=== PATIENT | male | born 1965 | race Caucasian/White ===

== ENCOUNTER 2017-03-26 13:33 | Emergency (ER) | payer MEDICAID ==
[~2017-03-26] VITALS: Ht 170.2 cm; Wt 88.0 kg
[~2017-03-26 13:33] MED LIST: Z.0.NO CURRENT MEDS
[2017-03-26 13:45] VITALS: BP 125/74; PULSE 106; RESP 19; TEMP 98.2; O2SAT 99
[2017-03-26] MEDS ORDERED: RESP: ALBUTEROL 2.5 MG/IPRATROPIUM 0.5 MG NEB (SCH) NEB ONE (14:00)
[2017-03-26] MEDS ORDERED: LORazepam 2 MG/ML VIAL IV PUSH ONE (14:00)
[2017-03-26] MEDS ORDERED: SYMB160A INH (14:18)
[2017-03-26] MEDS ORDERED: AZIT250T3 PO (14:18)
[2017-03-26] MEDS ORDERED: PRED50 PO (14:18)
[2017-03-26] MEDS ORDERED: ALBUAER3 INH (14:18)
[2017-03-26] MEDS ORDERED: HYDR50TA94 PO (14:18)
[2017-03-26 14:19] LABS: AUTOMATED NEUTROPHIL # 12.9 TH/MM3 (1.8-7.7); BASOPHIL # 0.1 TH/MM3 (0-0.2); BASOPHIL % 0.6 % (0.0-2.0); HEMATOCRIT 42.5 % (39.0-51.0); HEMO FLAGS DIFF FINAL; LYMPH % 15.2 % (9.0-44.0); LYMPHOCYTE # 2.6 TH/MM3 (1.0-4.8); MEAN CELL VOLUME 93.3 FL (80.0-100.0); MEAN CORPUSCULAR HEMOGLOBIN 31.4 PG (27.0-34.0); MEAN CORPUSCULAR HGB CONC 33.6 % (32.0-36.0); NEUT % 76.2 % (16.0-70.0); PLATELET COUNT 369 TH/MM3 (150-450); RED BLOOD COUNT 4.55 MIL/MM3 (4.50-5.90); RED CELL DISTRIBUTION WIDTH 14.1 % (11.6-17.2); WHITE BLOOD COUNT 16.9 TH/MM3 (4.0-11.0)
[2017-03-26 14:25] LABS: CHLORIDE 106 MEQ/L (98-107); POTASSIUM 3.6 MEQ/L (3.5-5.1); SODIUM (NA) 138 MEQ/L (136-145)
[2017-03-26 14:29] LABS: ANION GAP 16 MEQ/L (5-15); BICARBONATE 16.5 MEQ/L (21.0-32.0); BLOOD UREA NITROGEN 16 MG/DL (7-18)
[2017-03-26 14:32] LABS: ALT (GPT) 23 U/L (12-78); AST (GOT) 19 U/L (15-37); GLOMERULAR FILTRATION RATE 70 ML/MIN (>89)
--- NOTE | 2017-03-26 14:32 | PD ---
HPI Chief Complaint: Respiratory Symptoms Time Seen by Provider: 13:58 Travel History International Travel<30 days: No Contact w/Intl Traveler<30days: No Traveled to known affect area: No History of Present Illness HPI This is a 51 year old male who has a history of COPD and multiple allergies who presents to the emergency department with shortness of breath has been going on for several hours. The patient reports that overnight he was short of [facility] he waited in the waiting room and ultimately left without being seen. He then called an ambulance and was brought back and was given breathing treatments and some Ativan and he says he was asleep by the time he was discharged. He says that his shortness of breath feels like he can' t catch a deep breath and he feels like something is in his chest and he can't tell if it's phlegm or an allergic reaction. He denies any rash or itching. He says he feels very dry. He's been taking hydroxyzine for anxiety. He admits that he does have a history of anxiety. He denies any chest pain. PFSH Past Medical History Asthma: Yes High Cholesterol: Yes Cirrhosis: Yes COPD: Yes Diminished Hearing: No Respiratory: Yes Past Surgical History Body Medical Devices: LIVER PROBLEMS Social History Alcohol Use: No (QUIT 11 YEARS AGO) Tobacco Use: No (2 PPD X 31 YEARS, QUIT 5 YEARS AGAIN) Substance Use: Yes Allergies-Medications (Allergen,Severity, Reaction): Coded Allergies: No Known Allergies (Verified , 03/27/06) Reported Meds & Prescriptions Reported Meds & Active Scripts Active Reported Hydroxyzine HCl 50 Mg Tab 50 Mg PO QID PRN Prednisone 50 Mg Tab 50 Mg PO DAILY Azithromycin 250 Mg Tab 250 Mg PO DIRECTED Take 2 tabs (500 mg) on day 1 then 1 tab daily x 4 days. Proair Hfa 8.5 GM Inh (Albuterol Sulfate) 90 Mcg/Act Aer 2 Puff INH Q4-6H PRN 108 mcg/actuation Symbicort Inh (Budesonide/Formoterol Fumarate) 160-4.5 Mcg/Act Aero 2 Puff INH Q12HR Review of Systems Except as stated in HPI: all other systems reviewed are Neg Physical Exam Narrative GENERAL:Well appearing, no acute distress SKIN: Focused skin assessment warm and dry. HEAD: Atraumatic. Normocephalic. EYES: Pupils equal and round. No injection or drainage. ENT: Moist mucous membranes NECK: Trachea midline. CARDIOVASCULAR: Regular rate and rhythm. No murmur appreciated. RESPIRATORY: Mild expiratory wheezing, good air movement, speaking full sentences GASTROINTESTINAL: Abdomen soft, non-tender, nondistended. MUSCULOSKELETAL: No obvious deformities. NEUROLOGICAL: Awake and alert. No obvious cranial nerve deficits. Moving all extremities. PSYCHIATRIC: Pressured speech, anxious, somewhat tangential Data Data Last Documented VS Vital Signs Date Time Temp Pulse Resp B/P (MAP) Pulse Ox O2 Delivery O2 Flow Rate FiO2 03/26/17 14:05 99 Room Air 03/26/17 13:45 98.2 106 19 125/74 (91) Orders Orders Complete Blood Count With Diff (03/26/17 13:58) Comprehensive Metabolic Panel (03/26/17 13:58) D-Dimer (03/26/17 13:58) Chest, Single Ap (03/26/17 ) Albuterol-Ipratropium Neb (Duoneb Neb) (03/26/17 14:00) Lorazepam Inj (Ativan Inj) (03/26/17 14:00) Electrocardiogram (03/26/17 ) Ct Pulmonary Angiogram (03/26/17 ) Iohexol 350 Inj (Omnipaque 350 Inj) (03/26/17 15:30) Labs Laboratory Tests Test 03/26/17 14:11 White Blood Count 16.9 TH/MM3 Red Blood Count 4.55 MIL/MM3 Hemoglobin 14.3 GM/DL Hematocrit 42.5 % Mean Corpuscular Volume 93.3 FL Mean Corpuscular Hemoglobin 31.4 PG Mean Corpuscular Hemoglobin Concent 33.6 % Red Cell Distribution Width 14.1 % Platelet Count 369 TH/MM3 Mean Platelet Volume 7.6 FL Neutrophils (%) (Auto) 76.2 % Lymphocytes (%) (Auto) 15.2 % Monocytes (%) (Auto) 8.0 % Eosinophils (%) (Auto) 0.0 % Basophils (%) (Auto) 0.6 % Neutrophils # (Auto) 12.9 TH/MM3 Lymphocytes # (Auto) 2.6 TH/MM3 Monocytes # (Auto) 1.3 TH/MM3 Eosinophils # (Auto) 0.0 TH/MM3 Basophils # (Auto) 0.1 TH/MM3 CBC Comment DIFF FINAL Differential Comment D-Dimer Quantitative (PE/DVT) 0.52 MG/L FEU Blood Urea Nitrogen 16 MG/DL Creatinine 1.10 MG/DL Random Glucose 119 MG/DL Total Protein 8.3 GM/DL Albumin 3.9 GM/DL Calcium Level 9.7 MG/DL Alkaline Phosphatase 69 U/L Aspartate Amino Transf (AST/SGOT) 19 U/L Alanine Aminotransferase (ALT/SGPT) 23 U/L Total Bilirubin 0.9 MG/DL Sodium Level 138 MEQ/L Potassium Level 3.6 MEQ/L Chloride Level 106 MEQ/L Carbon Dioxide Level 16.5 MEQ/L Anion Gap 16 MEQ/L Estimat Glomerular Filtration Rate 70 ML/MIN MDM Medical Decision Making Medical Screen Exam Complete: Yes Emergency Medical Condition: Yes Interpretation(s) Afebrile, tachycardic, no hypoxia Leukocytosis of 16.9 76% neutrophils Bicarbonate is 16 D-dimer is 0.52 Chest x-ray: No acute process EKG: Normal sinus rhythm with no ST changes Differential Diagnosis COPD exacerbation, panic attack, anxiety, bipolar disorder, pulmonary embolism Narrative Course This is a 45-year-old male who presents to the emergency department short of breath. This is his third presentation to an emergency department in 24 hours for this. He does have a history of COPD. On arrival he was placed on a monitor and an IV was established. He was hyperventilating on arrival with a normal oxygen saturation, speaking full sentences. I treated him with a dose of steroids and bronchodilators as well as IV Ativan. My suspicion is that he is having a panic attack in his symptoms are mostly related to anxiety. I had along conversation with the patient regarding this. He feels much better after the Ativan. He says he has a family history of bipolar disorder and he struggled with anxiety in the past. He doesn't have a primary care physician currently because he's been having insurance trouble. I gave him information regarding his failure health and advised him to follow with Sourav Melton regarding possible outpatient treatment options. I will provide him a short course of Xanax which I told him only to use if he develops a panic attack. Labs demonstrate an elevated white blood cell count which I suspect is related to the patient's current steroid use. I'm not certain of the etiology of his low bicarbonate however he looks very well upon reassessment so I think he's safe for discharge. CT pulmonary angiogram is negative Diagnosis Primary Impression: Panic attack Patient Instructions: General Instructions Additional Instructions: If you develop severe chest pain, shortness of breath, sweating, lightheadedness , dizziness or difficulty breathing return to the emergency department immediately. Followup with your primary care physician in 2-3 days if your symptoms are not resolved. Follow up with Walter Melton in regards to psychiatric or substance related issues at: [address] [place], [place] [id number] Med/Other Pt SpecificInfo: Prescription(s) given Scripts Alprazolam (Xanax) 0.5 Mg Tab 0.5 MG PO Q6H Y for ANXIETY, #20 TAB 0 Refills Prov: Aliyah Martinez MD 03/26/17 Disposition: 01 DISCHARGE HOME Condition: Stable Aliyah Martinez MD Mar 26, 2017 14:32
[2017-03-26 14:34] LABS: TOTAL BILIRUBIN ADULT 0.9 MG/DL (0.2-1.0)
[2017-03-26 14:35] LABS: ALKALINE PHOSPHATASE 69 U/L (45-117)
--- NOTE | 2017-03-26 14:45 | RADRPT ---
EXAM DATE/TIME: 03/26/2017 14:33 [facility] COMPARISON: No previous studies available for comparison. INDICATIONS : Short of breath MEDICAL HISTORY : Hypercholesterolemia. Chronic obstructive pulmonary disease. Cirrhosis. Asthma, smoker SURGICAL HISTORY : None. ENCOUNTER: Initial ACUITY: 1 day PAIN SCORE: 0/10 LOCATION: Bilateral chest FINDINGS: A single view of the chest demonstrates the lungs to be symmetrically aerated without evidence of mas s, infiltrate or effusion. The cardiomediastinal contours are unremarkable. Osseous structures are intact. CONCLUSION: No acute disease. Marshall Gonzales Jr., MD on March 26, 2017 at 14:43 Board Certified Radiologist. This report was verified electronically.
[2017-03-26] MEDS ORDERED: IOHEXOL 350 MG/ML 10 ML VIAL (for RAD DIAG) IVCONTRAST ONE (15:30)
--- NOTE | 2017-03-26 16:02 | RADRPT ---
EXAM DATE/TIME: 03/26/2017 15:27 [facility] COMPARISON: No previous studies available for comparison. INDICATIONS : Short of breath. IV CONTRAST: 75 cc Omnipaque 350 (iohexol) IV RADIATION DOSE: 14.67 CTDIvol (mGy) MEDICAL HISTORY : Chronic obstructive pulmonary disease. Cirrhosis. Asthma. SURGICAL HISTORY : None. ENCOUNTER: Initial ACUITY: 1 day PAIN SCALE: 0/10 LOCATION: chest TECHNIQUE: Volumetric scanning of the chest was performed using a pulmonary embolism protocol MIP images were re constructed. Using automated exposure control and adjustment of the mA and/or kV according to patien t size, radiation dose was kept as low as reasonably achievable to obtain optimal diagnostic quality images. DICOM format image data is available electronically for review and comparison. Follow-up recommendations for detected pulmonary nodules are based at a minimum on nodule size and pa tient risk factors according to Fleischner Society Guidelines. FINDINGS: There is respiratory motion artifact. PULMONARY ARTERIES: No filling defects are seen in the pulmonary arteries through the segmental level. LUNGS: There is no consolidation or pneumothorax . No concerning pulmonary nodule is visualized. There is r espiratory motion artifact. PLEURAE: There is no pleural thickening or pleural effusion. MEDIASTINUM: There is good visualization of the great vessels of the middle mediastinum. No evidence of mediastin al or hilar adenopathy/mass. MUSCULOSKELETAL: No acute abnormality. MISCELLANEOUS: The visualized upper abdominal organs demonstrate no acute abnormality. There is an 8mm right adrenal gland mass with Hounsfield measurements characteristic of an adenoma. CONCLUSION: 1. No PE is identified. 2. 8mm right adrenal gland adenoma. Bora Christianson MD on March 26, 2017 at 15:58 Board Certified Radiologist. This report was verified electronically.
[2017-03-26] MEDS ORDERED: ALPR.5 PO (16:15)
--- NOTE | 2017-03-27 18:38 | EKG ---
Date Performed: 03/26/2017 Time Performed: 14:22:03 PTAGE: 51 years EKG: Sinus rhythm MARKED LEFT AXIS DEVIATION ABNORMAL ECG NO PREVIOUS TRACING DOCTOR: Nery Hancock Interpretating Date/Time 03/27/2017 18:37:21
== END 2017-03-26 16:41 | disposition home or self-care (01) ==
LOC: PHED 13:33
DX: F41.0 Panic disorder [episodic paroxysmal anxiety] (principal); J44.9 Chronic obstructive pulmonary disease, unspecified; E78.00 Pure hypercholesterolemia, unspecified
CPT/HCPCS: 71010; 71275; 80053; 85025; 85379; 93005; 94664; 96374; 99285; J2060; Q9967